=== PATIENT | male | born 1990 | race Caucasian/White ===

== ENCOUNTER 2016-12-29 12:07 | Emergency (ER) | payer OTHER ==
[2016-12-29 12:18] VITALS: RESP 20
[2016-12-29 13:22] LABS: RBC URINE 1 /hpf (0-3); URINE BILIRUBIN NEGATIVE (NEGATIVE); URINE BLOOD NEGATIVE (NEGATIVE); URINE COLOR Yellow (YELLOW); URINE GLUCOSE (UA) NORMAL (Normal); URINE KETONE NEGATIVE (NEGATIVE); URINE LEUKOCYTE ESTERASE NEG Leu/uL (Negative); URINE PROTEIN NEGATIVE (NEGATIVE); URINE UROBILINOGEN NORMAL mg/dL (0.2-1.0); WBC URINE < 1 /hpf (0-5)
--- NOTE | 2016-12-29 13:26 | C.PDOC ---
History Of Present Illness 26 y/o male presents to the ED complaining of sudden onset testicular pain since last night. He reports history of similar two years ago and states he was diagnosed with varicocele which he had surgery for in the [place]. He denies any issues since then. Patient admits to some mild heavy lifting at work. He denies any trauma, fever, back pain, abdominal pain, hematuria, dysuria , penile discharge, or any other complaints. Time Seen by Provider: 12/29/16 12:40 Chief Complaint (Nursing): Male Genitourinary History Per: Patient History/Exam Limitations: no limitations Onset/Duration Of Symptoms: Days (1), Sudden Onset, Persistent Current Symptoms Are (Timing): Still Present Recent travel outside of the [place]: No Past Medical History Reviewed: Historical Data, Nursing Documentation, Vital Signs Vital Signs: Last Vital Signs Temp 97.8 F 12/29/16 16:40 Pulse 67 12/29/16 16:40 Resp 20 12/29/16 16:40 BP 120/82 12/29/16 16:40 Pulse Ox 100 12/29/16 16:40 - Medical History PMH: No Chronic Diseases Other Surgeries: VARICOSE VEINS 3 YRS AGO Family History: States: No Known Family Hx - Social History Hx Tobacco Use: No Hx Alcohol Use: Yes Hx Substance Use: No - Immunization History Hx Influenza Vaccination: No Review Of Systems Except As Marked, All Systems Reviewed And Found Negative. Constitutional: Negative for: Fever Gastrointestinal: Negative for: Abdominal Pain Genitourinary: Positive for: Other (testicular pain). Negative for: Dysuria, Hematuria, Penile Discharge Musculoskeletal: Negative for: Back Pain Physical Exam - Physical Exam Appears: Non-toxic, No Acute Distress Skin: Normal Color, Warm, Dry Head: Atraumatic, Normacephalic Neck: Normal ROM Chest: Symmetrical Cardiovascular: Rhythm Regular Respiratory: Normal Breath Sounds, No Rales, No Rhonchi, No Wheezing Gastrointestinal/Abdominal: Normal Exam, Soft, No Tenderness Back: Normal Inspection, No CVA Tenderness Male Genital: Normal Inspection, No Testicular Tenderness, No Testicular Swelling, No Inguinal Tenderness, No Inguinal Swelling, Other (2 well-healed surgical scars to inguinal area) Extremity: Normal ROM Neurological/Psych: Oriented x3, Normal Speech, Normal Cognition Additional Physical Exam Comments: Aerologist present, JUAQUIN Gould ED Course And Treatment O2 Sat by Pulse Oximetry: 99 (ra) Pulse Ox Interpretation: Normal - CT Scan/US Ultrasound Other Rad Studies (CT/US): Read By Radiologist (Rodney Velásquez MD), Radiology Report Reviewed CT/US Interpretation: Findings: Right testes: 4.6 x 1.9 x 3.1 centimeters. Homogeneous echotexture. Normal flow. Small right scrotal hydrocele. Right epididymis measures 9 x 8 x 7 millimeters. Normal flow. Left testes: 4.5 x 1.7 x 2.9 centimeters. Homogeneous echotexture. Normal flow. Small left scrotal hydrocele. Left epididymis measures 0.6 x 1.1 x 1.1 centimeters. Normal flow. Impression: Small bilateral scrotal hydroceles. No evidence of testicular torsion. Medical Decision Making Medical Decision Making: Plan: * Ultrasound * Urinalysis * Motrin PO On reassessment, patient reports improvement of testicular pain. Patient is resting comfortably and is in no acute distress. Patient was instructed to follow up with urologist in 1-2 days for further evaluation or return to ED if symptoms persist or worsen. Disposition - Disposition Referrals: Lul Meyer MD [Staff Provider] - Porter Varela MD [Staff Provider] - Disposition: HOME/ ROUTINE Disposition Time: 16:17 Condition: GOOD Additional Instructions: Follow up with the Urologist within 1-2 days. Return if worsened Prescriptions: Ibuprofen [Motrin Tab] 800 mg PO TID #20 tab traMADol [Ultram] 50 mg PO Q6 PRN #20 tab PRN Reason: Pain Instructions: Hydrocele (ED), Testicle Pain (ED) Forms: Work Excuse Print Language: ROMANIAN - Clinical Impression Clinical Impression: Hydrocele - PA / DRUMS TEACHER / Resident Statement MD/DO has reviewed & agrees with the documentation as recorded. - Scribe Statement The provider has reviewed the documentation as recorded by the Scribe (Angelina Nguyễn) All medical record entries made by the Scribe were at my direction and personally dictated by me. I have reviewed the chart and agree that the record accurately reflects my personal performance of the history, physical exam, medical decision making, and the department course for this patient. I have also personally directed, reviewed, and agree with the discharge instructions and disposition.
--- NOTE | 2016-12-29 16:03 | US ---
Testicular ultrasound History: Right-sided testicular pain. Comparison: None available. Technique: Real-time sonography was performed through the scrotum. Findings: Right testes: 4.6 x 1.9 x 3.1 centimeters. Homogeneous echotexture. Normal flow. Small right scrotal hydrocele. Right epididymis measures 9 x 8 x 7 millimeters. Normal flow. Left testes: 4.5 x 1.7 x 2.9 centimeters. Homogeneous echotexture. Normal flow. Small left scrotal hydrocele. Left epididymis measures 0.6 x 1.1 x 1.1 centimeters. Normal flow. Impression: Small bilateral scrotal hydroceles. No evidence of testicular torsion.
[2016-12-29 16:41] VITALS: BP 120/82; PULSE 67; TEMP 97.8
[2017-01-02 11:27] VITALS: O2SAT 99
== END 2016-12-29 16:42 | disposition home or self-care (01) ==
LOC: C.ER 12:07
DX: N43.3 Hydrocele, unspecified (principal)